=== PATIENT | male | born 1935 | race Hispanic/Latino ===

== ENCOUNTER 2019-05-17 21:35 | Inpatient (IN) | payer MEDICARE ==
[~2019-05-17] VITALS: Ht 167.6 cm; Wt 68.3 kg
[2019-05-17] MEDS ORDERED: ONDANSETRON HCL INJ 2MG/ML 2ML 2 MG/ML VIAL IV STA (22:20)
[2019-05-17] MEDS ORDERED: SODIUM CHLORIDE 0.9% 1000ML 1,000 ML IV STA ×2 (22:20→23:10)
[2019-05-17 22:28] LABS: BASOPHILS % 0.1 % (0.0-1.0); EOSINOPHILS # (AUTO) 0.2 (0.0-0.4); EOSINOPHILS % 2.1 % (0.0-6.0); HEMATOCRIT 40.2 % (38.2-49.6); HEMOGLOBIN 13.6 g/dL (14.0-18.0); LYMPHOCYTES # (AUTO) 0.4 (1.0-3.2); LYMPHOCYTES % 5.1 % (18.0-39.1); MEAN CORPUSCULAR HEMOGLOBIN 30.5 pg (28-32); MEAN CORPUSCULAR HGB CONC 33.8 g/dL (31-35); MEAN CORPUSCULAR VOLUME 90.1 fL (81-99); MONOCYTES # (AUTO) 0.1 (0.2-0.8); MONOCYTES % 1.4 % (4.4-11.3); NEUTROPHILS # (AUTO) 6.5 (2.1-6.9); NEUTROPHILS % 90.9 % (38.7-80.0); PLATELET COUNT 224 x10e3/uL (140-360); RED BLOOD COUNT 4.46 x10e6/uL (4.3-5.7); RED CELL DISTRIBUTION WIDTH 12.7 % (11.7-14.4)
[2019-05-17] MEDS ORDERED: CEFEPIME HCL 1 GM VIAL IV SCH (22:30)
[2019-05-17] MEDS ORDERED: ACETAMINOPHEN 325 MG TAB PO ONE (22:30)
[2019-05-17] MEDS ORDERED: CEFEPIME 1GM/NS 0.9% 50 ML 50 ML IV ONE (22:36)
[2019-05-17 22:41] LABS: CLARITY,URINE SL CLOUDY (CLEAR); COLOR,URINE YELLOW (YELLOW); LEUKOCYTE ESTERASE ,URINE NEGATIVE (NEGATIVE); NITRITE,URINE NEGATIVE (NEGATIVE); PROTEIN,URINE DIPSTICK TRACE (NEGATIVE)
[2019-05-17 22:42] LABS: BILIRUBIN,URINE NEGATIVE (NEGATIVE); KETONES,URINE NEGATIVE (NEGATIVE); URINE UROBILINOGEN 1 mg/dL (0.2 - 1)
[2019-05-17 23:01] LABS: RBC,URINE 21-50 /HPF (0-5)
[2019-05-17 23:02] LABS: ALBUMIN 3.8 g/dL (3.5-5.0); ALBUMIN/GLOBULIN RATIO 1.1 (0.8-2.0); ANION GAP 13.9 mmol/L (8-16); BACTERIA,URINE MODERATE /HPF; CALCIUM 9.2 mg/dL (8.4-10.2); CREATININE, SERUM 1.31 mg/dL (0.72-1.25); EPITHELIAL CELLS,URINE FEW /LPF; POTASSIUM 3.9 mmol/L (3.5-5.1)
[2019-05-17 23:08] LABS: CREATINE KINASE MB 0.8 ng/mL (0-5.0)
[2019-05-17] MEDS ORDERED: SODIUM CHLORIDE 0.9% 1000ML 1,000 ML ONE (23:16)
[2019-05-18] VITALS (10 sets, daily range): BP systolic 137–164; BP diastolic 69–74
[2019-05-18] MEDS ORDERED: SODIUM CHLORIDE 0.9% 50ML 50 ML ONE (00:09)
[2019-05-18] MEDS ORDERED: IOPAMIDOL 370 MG/ML 200 ML INFUS..BTL INJ ONE (00:09)
[2019-05-18] MEDS ORDERED: CEFEPIME 1GM/ SOD CHL 50 ML BAG IV ONE (00:30)
--- NOTE | 2019-05-18 01:09 | Diagnostic Imaging Report ---
EXAMINATION: CT of the abdomen and pelvis with contrast. TECHNIQUE: Spiral CT images of the abdomen and pelvis were performed from the lung bases to the lesser trochanters after the intravenous administration of 100 cc of Isovue 370. Coronal and sagittal reformatted images were obtained. COMPARISON: None. CLINICAL HISTORY:Nausea, bilateral upper abdominal pain DISCUSSION: ABDOMEN/PELVIS: LOWER THORAX:Left hemidiaphragmatic elevation. Bandlike atelectasis in the lower lobes left greater than right. Atherosclerotic calcifications of the left anterior descending coronary artery. Rightward mediastinal shift. HEPATOBILIARY: 1.5 cm hypoattenuating lesion in segment 4A, average internal attenuation 38 Hounsfield units, indeterminate. No additional focal hepatic lesion the gallbladder is collapsed, limiting evaluation. Questionable radiopaque filling defect in the distal common bile duct seen on series 2 image 37 and coronal image 40. Mild common bile duct dilatation (8-9 mm.) SPLEEN: No splenomegaly or focal splenic lesion. PANCREAS: No focal masses or ductal dilatation. ADRENALS: No adrenal nodules. KIDNEYS/URETERS: No hydronephrosis, calculi, or solid or cystic mass lesions. PELVIC ORGANS/BLADDER: Urinary bladder is unremarkable. The prostate is enlarged, measuring 0.9 cm transversely with mass effect on the bladder base. PERITONEUM/RETROPERITONEUM: No ascites or pneumoperitoneum. LYMPH NODES: No pelvic sidewall, retroperitoneal, or mesenteric lymphadenopathy. VESSELS: Extensive calcified and noncalcified atherosclerotic plaque throughout the abdominal aorta and major branches. Moderate left renal artery origin stenosis is suspected. Remaining visceral branch origins are patent. Advanced calcified atherosclerotic plaque of the iliac arterial systems as well, though again without significant stenosis or aneurysmal dilatation. Portal vein, splenic vein, and central superior mesenteric vein are patent. GI TRACT: The large bowel is notable for innumerable sigmoid diverticula without wall thickening or adjacent inflammatory change. The appendix is normal. Large diverticulum projects superiorly from the third portion of the duodenum. No small bowel dilatation to suggest obstruction. BONES AND SOFT TISSUE: No osseous destructive lesions. Multilevel degenerative disc changes and degenerative facet arthropathy of the lumbar spine. No focal soft tissue abnormality. IMPRESSION: Mild biliary ductal dilatation with questionable choledocholithiasis in the common bile duct. Correlation with serum bilirubin is suggested, and MRCP or gastroenterology consultation for ERCP may be of benefit for further evaluation. Otherwise no acute intra-abdominal or pelvic CT abnormalities. Large bowel diverticulosis without diverticulitis. Atherosclerotic vascular disease. Prostatomegaly. Indeterminate 1.5 cm hypoattenuating lesion in hepatic segment 4, statistically likely to be benign in the absence of known malignancy. Considerations include hemangioma and focal nodular hyperplasia. Definitive characterization with CT or MRI of the abdomen with and without contrast (liver mass protocol) is suggested. Signed by: Dr. Morgan Villalobos M.D. on 05/18/2019 1:06 AM
--- NOTE | 2019-05-18 01:11 | Diagnostic Imaging Report ---
EXAMINATION: PA and lateral views of the chest. COMPARISON: None CLINICAL HISTORY: Chest pain DISCUSSION: Marked left hemidiaphragmatic elevation with bandlike opacities in the lower lobe, likely subsegmental atelectasis. Right lung is clear. Atherosclerotic calcification of the aortic arch. Heart size and pulmonary vasculature appear normal area no acute osseous abnormality. Multilevel degenerative disc changes of the thoracic spine. IMPRESSION: Left hemidiaphragmatic elevation with bandlike atelectasis of the left lower lobe. Otherwise no acute cardiopulmonary abnormality. Signed by: Dr. Morgan Villalobos M.D. on 05/18/2019 1:08 AM
[2019-05-18] MEDS ORDERED: SODIUM CHLORIDE 0.9% 1000ML 1,000 ML IV ONE (01:45)
--- NOTE | 2019-05-18 03:16 | NUR ---
Unable to obtain home meds at this time. Patient states he will have a list in the morning.
--- OUTSIDE RECORDS SUMMARY | 2019-05-18 03:18 | XMS REPORT ---
Author [facility] Address Unknown Phone Unavailable Care Team Providers Care Family Service Assistant Name Role Phone DARBY MORA Unavailable Unavailable Problems This patient has no known problems. Allergies, Adverse Reactions, Alerts This patient has no known allergies or adverse reactions. Medications This patient has no known medications. Results Test Description Test Time Test Comments Text Results Atomic Results Result Comments CHEST 2 VIEWS 2019-05-18 01:06:00 [place] [address] Patient Name: DENISSE DOS SANTOS MR #: [id number] : 1935 Age/Sex: 84/M Req #: [id number] Adm Physician: Ordered by: DARBY MORA DO Report #: [id number] Location: ER Room/Bed: Procedure: [id number] DX/CHEST 2 VIEWS Exam Date: 05/18/19 Exam Time: 0030 REPORT STATUS: Signed EXAMINATION: PA and lateral views of the chest. COM PARISON: None CLINICAL HISTORY: Chest pain DISCUSSION: Marked left hemidiaphragmatic elevation with bandlike opacities in the lower lobe, likely subsegmental atelectasis. Right lung is clear. Atherosclerotic calcification of the aortic arch. Heart size and pulmonary vasculature appear normal area no acute osseous abnormality. Multilevel degenerative disc changes of the thoracic spine. IMPRESSION: Left hemidiaphragmatic elevation with bandlike atelectasis of the left lower lobe. Otherwise no acute cardiopulmonary abnormality. Signed by: Dr. Keenan Bradley M.D. on 05/18/2019 1:08 AM Dictated By: KEENAN BRADLEY MD 7 Transcribed By: SHANIQUA on 05/18/19107 COPY TO: DARBY MORA DO CT ABDOMEN/PELVIS W 2019-05-18 00:53:00 [place] [address] Patient Name: DENISSE DOS SANTOS MR #: [id number] : 1935 Age/Sex: 84/M Req #: [id number] Adm Physician: Ordered by: DABRY MORA DO Report #: [id number] Location: ER Room/Bed: Procedure: [id number] CT/CT ABDOMEN/PELVIS W Exam Date: 05/18/19 Exam Time: 0020 REPORT STATUS: Signed EXAMINATION: CT of the abdomen and pelvis with contra st. TECHNIQUE: Spiral CT images of the abdomen and pelvis were performed from the lung bases to the lesser trochanters after the intravenous administration of 100 cc of Isovue 370. Coronal and sagittal reformatted images were obtained. COMPARISON: None. CLINICAL HISTORY:Nausea, bilateral upper abdominal pain DISCUSSION: ABDOMEN/PELVIS: LOWER THORAX:Left hemidiaphragmatic elevation. Bandlike atelectasis in the lower lobes left greater than right. Atherosclerotic calcifications of the left anterior descending coronary artery. Rightward mediastinal shift. HEPATOBILIARY: 1.5 cm hypoattenuating lesion in segment 4A, average internal attenuation 38 Hounsfield units, indeterminate. No additional focal hepatic lesion the gallbladder is collapsed, limiting evaluation. Questionable radiopaque filling defect in the distal common bile duct seen on series 2 image 37 and coronal image 40. Mild common bile duct dilatation (8-9 mm.) SPLEEN: No splenomegaly or focal splenic lesion. PANCREAS: No focal masses or ductal dilatation. ADRENALS: No adrenal nodules. KIDNEYS/URETERS: No hydronephrosis, calculi, or solid or cystic mass lesions. PELVIC ORGANS/BLADDER: Urinary bladder is unremarkable. The prostate is enlarged, measuring 0.9 cm transversely with mass effect on the bladder base. PERITONEUM/RETROPERITONEUM: No ascites or pneumoperitoneum. LYMPH NODES: No pelvic sidewall, retroperitoneal, or mesenteric lymphadenopathy. VESSELS: Extensive calcified and noncalcified atherosclerotic plaque throughout the abdominal aorta and major branches. Moderate left renal artery origin stenosis is suspected. Remaining visceral branch origins are patent. Advanced calcified atherosclerotic plaque of the iliac arterial systems as well, though again without significant stenosis or aneurysmal dilatation. Portal vein, splenic vein, and central superior mesenteric vein are patent. GI TRACT: The large bowel is notable for innumerable sigmoid diverticula without wall thickening or adjacent inflammatory change. The appendix is normal. Large diverticulum projects superiorly from the third portion of the duodenum. No small bowel dilatation to suggest obstruction. BONES AND SOFT TISSUE: No osseous destructive lesions. Multilevel degenerative disc changes and degenerative facet arthropathy of the lumbar spine. No focal soft tissue abnormality. IMPRESSION: Mild biliary ductal dilatation with questionable choledocholithiasis in the common bile duct. Correlation with serum bilirubin is suggested, and MRCP or gastroenterology consultation for ERCP may be of benefit for further evaluation. Otherwise no acute intra-abdominal or pelvic CT abnormalities. Large bowel diverticulosis without diverticulitis. Atherosclerotic vascular disease. Prostatomegaly. Indeterminate 1.5 cm hypoattenuating lesion in hepatic segment 4, statistically likely to be benign in the absence of known malignancy. Considerations include hemangioma and focal nodular hyperplasia. Definitive characterization with CT or MRI of the abdomen with and without contrast (liver mass protocol) is suggested. Signed by: Dr. Keenan Bradley M.D. on 05/18/2019 1:06 AM Dictated By: KEENAN BRADLEY MD 5 Transcribed By: SHANIQUA on 05/18/19105 COPY TO: DARBY MORA DO
[2019-05-18] MEDS ORDERED: ACETAMINOPHEN 325 MG TAB PO PRN (04:00)
--- NOTE | 2019-05-18 04:22 | NUR ---
Patient moved to a hospital bed at this time. No distress noted. RR even and unlabored. Patient instructed to use call light if he needed any assistance. Patient verbalized understanding. Will continue to monitor patient.
--- NOTE | 2019-05-18 06:58 | NUR ---
Report to Jamie
--- NOTE | 2019-05-18 06:59 | NUR ---
received report from off going nurse. patient in hospital bed, report has been called by off going nurse. will transport after shift change.
[2019-05-18] MEDS ORDERED: AMLODIPINE BESYL5 MG PO (08:08)
[2019-05-18] MEDS ORDERED: LOSARTAN POTASS25 MG PO (08:09)
[2019-05-18] MEDS ORDERED: SIMVASTATIN20 MG PO (08:09)
[2019-05-18] MEDS ORDERED: METFORMIN HCL500 MG PO ×2 (08:10)
[2019-05-18] MEDS ORDERED: DEXTROSE 50% SYRINGE 50 ML IV PRN (09:30)
--- NOTE | 2019-05-18 09:37 | NUR ---
CONSULT CALLED TO DR HOLMAN, SPOKE TO AVERY
[2019-05-18 09:49] LABS: BASOPHILS # (AUTO) 0.1 (0.0-0.1); BASOPHILS % 0.3 % (0.0-1.0); EOSINOPHILS # (AUTO) 0.2 (0.0-0.4); EOSINOPHILS % 0.8 % (0.0-6.0); HEMATOCRIT 36.4 % (38.2-49.6); HEMOGLOBIN 12.3 g/dL (14.0-18.0); LYMPHOCYTES # (AUTO) 1.2 (1.0-3.2); MEAN CORPUSCULAR HEMOGLOBIN 30.6 pg (28-32); MEAN CORPUSCULAR HGB CONC 33.8 g/dL (31-35); MEAN CORPUSCULAR VOLUME 90.5 fL (81-99); MONOCYTES # (AUTO) 1.2 (0.2-0.8); NEUTROPHILS # (AUTO) 17.2 (2.1-6.9); NEUTROPHILS % 86.5 % (38.7-80.0); PLATELET COUNT 201 x10e3/uL (140-360); RED BLOOD COUNT 4.02 x10e6/uL (4.3-5.7)
[2019-05-18] MEDS: SODIUM CHLORIDE 0.9% 1000ML 1,000 ML IV SCH ×3 (10:45→23:58)
[2019-05-18] MEDS: INSULIN REGULAR, HUMAN 100 UNIT/1 ML 3ML VIAL SQ SCH ×3 (11:16→21:00)
--- NOTE | 2019-05-18 11:18 | NUR ---
rositaain [id number]
[2019-05-18 11:22] LABS: ALANINE AMINOTRANSFERASE 287 IU/L (0-55); ALBUMIN 3.3 g/dL (3.5-5.0); ALKALINE PHOSPHATASE 117 IU/L (40-150); AMYLASE 103 U/L (25-125); ANION GAP 11.8 mmol/L (8-16); BLOOD UREA NITROGEN 13 mg/dL (7-26); BUN/CREATININE RATIO 13 (6-25); CALCIUM 8.7 mg/dL (8.4-10.2); CARBON DIOXIDE 22 mmol/L (22-29); CHLORIDE 113 mmol/L (98-107); CREATININE, SERUM 1.01 mg/dL (0.72-1.25); EST GLOMERULAR FILTRATION RATE > 60 ML/MIN (60-); GLUCOSE 103 mg/dL (74-118); LIPASE 14 U/L (8-78); POTASSIUM 3.8 mmol/L (3.5-5.1); SODIUM 143 mmol/L (136-145)
[2019-05-18 11:51] LABS: ALBUMIN 3.3 g/dL (3.5-5.0); BILIRUBIN,DIRECT 1.7 mg/dL (0.0-0.5)
[2019-05-18] MEDS: CEFEPIME 1GM/NS 0.9% 50 ML 50 ML IV SCH ×2 (12:27→23:58)
[2019-05-18] MEDS: VANCOMYCIN 1GM/NS 250 ML 250 ML IV SCH (12:28)
--- NOTE | 2019-05-18 13:40 | Diagnostic Imaging Report ---
MRCP (magnetic resonance cholangiopancreatography) HISTORY: Choledocholithiasis Comparison: CT of the abdomen and pelvis performed earlier the same day Technique: Multiplanar and multisequence MRI images of the abdomen were obtained without contrast. Three-dimensional reconstructed images of the biliary tree are also reviewed. FINDINGS: The common bile duct is mildly dilated measuring 10 mm in maximum diameter. There is a 5 mm filling defect ductal stone in the distal common bile duct. Mild intrahepatic biliary dilatation. No pancreatic ductal dilation. The gallbladder demonstrates no intraluminal defect, wall thickening, or pericholecystic fluid. No mass is identified in the region of the ampulla or pancreatic head. Unremarkable appearance of the liver, pancreas, spleen, adrenal glands, and kidneys. The visualized bowel loops appear normal in caliber. There is a duodenal diverticulum. No free fluid or lymphadenopathy is seen within the abdomen. Impression: 1. Choledocholithiasis. A 5 mm stone is seen in the distal CBD. 2. No evidence of acute cholecystitis. 3. Mild intra and extrahepatic dilatation. The common bile duct measures up to maximum of 10 mm in diameter. Signed by: Arden Alvarado MD on 05/18/2019 1:37 PM
--- NOTE | 2019-05-18 14:29 | Consultation ---
DATE OF CONSULTATION: REASON FOR CONSULTATION: Sepsis, septic shock. HISTORY OF PRESENT ILLNESS: This patient is currently in the intensive care unit. He is an 84-year-old male, who comes into the emergency room with weakness, nausea, fever, and chills. The patient came to the hospital by his private car, was evaluated in the emergency room. In the emergency room, he had a heart rate of 104 and temperature 102. Blood cultures obtained. Flu was send out. The patient denies any past medical history and denies any past surgical history. He was admitted, currently in [facility]. LABORATORY DATA: White count on admission was 7.2, today 19.9; hemoglobin 12, hematocrit 36, and 86% segs. His lactic acid was 3.2. Sodium 137, potassium 3.9, creatinine of 1.3, and glucose 188. Blood cultures still pending. He had an abdomen CT and pelvis showed mild biliary ductal dilatation with questionable cholelithiasis. He had a chest x-ray, which showed left hemidiaphragm elevation, atelectasis in left lower lobe. MEDICATION LIST: In the emergency room, he received a dose of cefepime. PHYSICAL EXAMINATION: GENERAL: He is currently alert, oriented, does not seem to be in acute distress. VITALS SIGNS: Stable. T-max 102.5. HEENT: Normocephalic. Not icteric. NECK: Supple. CHEST: Few crackles bilaterally at the bases. HEART: S1 and S2. No S3, S4, or murmur. ABDOMEN: Soft. Bowel sounds present. No tenderness. EXTREMITIES: No edema. SKIN: There is no rash. IMPRESSION AND PLAN: Sepsis, present on admission. Agree with blood cultures. We will put the patient on vancomycin and cefepime. Recheck CBC. Check liver enzymes. Obtain ultrasound of the abdomen. Obtain MRCP. Check amylase and lipase. IV fluid. Recheck CBC. Recheck Chem panel. Agree with supportive care. We will follow. MD JESSICA Paz/JOVANA /[id number]
--- NOTE | 2019-05-18 15:37 | Diagnostic Imaging Report ---
HISTORY : Cholecystitis COMPARISON : CT of the abdomen and pelvis and MRCP dated 05/18/2019 COMMENT : Complete ultrasound examination of the abdomen was performed. The liver is normal in size and homogeneous in echo-texture without evidence of a focal mass. The gallbladder contains echogenic sludge. There is no gallbladder wall thickening or pericholecystic fluid. There is mild intrahepatic dilatation. The common bile duct is normal diameter measuring 5 mm.. The visualized portions of the pancreas are within normal limits. The spleen is normal in size and echo-texture measuring 10.8 cm. The right kidney measures 9.2 cm and the left kidney 10.4 cm in maximum size. There is no evidence of cysts, masses, stones or hydronephrosis. The portal vein measures to a maximum of 1.1 cm in diameter. There is no ascites or pleural effusion. The visualized inferior vena cava, hepatic veins and abdominal aorta are within normal limits. IMPRESSION : Gallbladder sludge. No ultrasonographic evidence of acute cholecystitis. Mild intrahepatic or dilatation. Signed by: Arden Alvarado MD on 05/18/2019 3:34 PM
--- NOTE | 2019-05-18 18:18 | NUR ---
call placed to MAYELIN MEDRANO director of promotions, awaiting return call
--- NOTE | 2019-05-18 18:46 | NUR ---
spoke to Dr. Gleason and informed patient needs a ERCP prior to gallbladder removal per Dr. Leisa Yates, no new orders and states "he will inform Dr. Ziegler and they will take care of it".
--- NOTE | 2019-05-18 18:52 | NUR ---
Date of Service 05/18/2019 Date of service 05/18/2019 History present illness: 84-year-old gentleman presented to emergency department complaining of fever, chills. The patient was not doing well and presented with a clinical picture of sepsis. CAT scan of the abdomen demonstrated biliary colic Patient with questionable choledocholithiasis in the common bile duct possible vascular disease. Patient was placed on IV fluids and broad spectrum antibiotics were started. Basically patient has been complaining of right upper quadrant pain of moderate intensity along with episodes of nausea and vomiting. Past medical history: Significant for diabetes mellitus, hypertension and hyperlipidemia. Medications taken at admission: Per medication list. Social history: History of smoking 1 pack is cigarettes per day for 15 years. Quit smoking long time ago. No alcohol abuse. No drug use. Family history: Noncontributory. Allergies: As per record. Wendy Mendoza is a 79 y.o. female patient who was doing fine at the time of my evaluation. The patient they stated that she would like to go home however she has been feeling weak and noted to have UTI. It is advisable to follow-up sensitivities today. Denies nausea, no vomiting, no diarrhea. No fever no chills. Denies having abdominal pain. No back pain. No chest pain or shortness of breath Objective Review of systems Constitutional: Feeling weak. Cardiovascular: Denies PND, chest pain, palpitations, Respiratory: Denies cough or shortness of breath. Gastrointestinal: . Playful no pain. Genitourinary: Denies dysuria, hematuria or frequency. Neurologic: Denies focal weakness. No confusion. bowel or bladder incontinence. Skin: Denies rashes. Skeletal: No back pain, no arthralgias or joint pain. Allergies: Negative Hematological:: No petechia, no bruising. Psych: No anxiety or depression. Assessment: -History of fever and chills. Possible sepsis. -Choledocholithiasis as determined by CT scan of the abdomen. -Diabetes mellitus type 2 -Hypertension -Hepatic segment lesion, possible hemangioma. Size 1.5 cm diameter. -Hyperlipidemia Plan of care: Admitted for further evaluation. Placed on IV fluids. Pain control. MRCP ordered. Consult general surgery Consult pulmonary critical care -Date of service 05/18/2019 History present illness: 84-year-old gentleman presented to emergency department complaining of fever, chills. The patient was not doing well and presented with a clinical picture of sepsis. CAT scan of the abdomen demonstrated biliary colic Patient with questionable choledocholithiasis in the common bile duct possible vascular disease. Patient was placed on IV fluids and broad spectrum antibiotics were started. Basically patient has been complaining of right upper quadrant pain of moderate intensity along with episodes of nausea and vomiting. Past medical history: Significant for diabetes mellitus, hypertension and hyperlipidemia. Medications taken at admission: Per medication list. Social history: History of smoking 1 pack is cigarettes per day for 15 years. Quit smoking long time ago. No alcohol abuse. No drug use. Family history: Noncontributory. Allergies: As per record. Wendy Mendoza is a 79 y.o. female patient who was doing fine at the time of my evaluation. The patient they stated that she would like to go home however she has been feeling weak and noted to have UTI. It is advisable to follow-up sensitivities today. Denies nausea, no vomiting, no diarrhea. No fever no chills. Denies having abdominal pain. No back pain. No chest pain or shortness of breath Objective Review of systems Constitutional: Feeling weak. Cardiovascular: Denies PND, chest pain, palpitations, Respiratory: Denies cough or shortness of breath. Gastrointestinal: . Playful no pain. Genitourinary: Denies dysuria, hematuria or frequency. Neurologic: Denies focal weakness. No confusion. bowel or bladder incontinence. Skin: Denies rashes. Skeletal: No back pain, no arthralgias or joint pain. Allergies: Negative Hematological:: No petechia, no bruising. Psych: No anxiety or depression. Assessment: -History of fever and chills. Possible sepsis. -Choledocholithiasis as determined by CT scan of the abdomen. -Diabetes mellitus type 2 -Hypertension -Hepatic segment lesion, possible hemangioma. Size 1.5 cm diameter. -Hyperlipidemia Plan of care: Admitted for further evaluation. Placed on IV fluids. Pain control. MRCP ordered. Consult general surgery Consult pulmonary critical care Consult ID and GI. Glycemic control Consult ID and GI.
--- NOTE | 2019-05-18 20:10 | Consultation ---
DATE OF CONSULTATION: 05/18/2019 Pulmonary Medicine Consult PRIMARY CARE DOCTOR: Justino Bradley MD REASON FOR REFERRAL: Sepsis. HISTORY OF PRESENT ILLNESS: Mr. Styles is a pleasant 84-year-old gentleman with sepsis. The patient with now two days of symptoms, acute onset just prior to coming to the hospital. In emergency room, 102.5 temperature recorded. The patient had some right upper quadrant pain of moderate intensity and it is worse than what he had a few months ago when similar pain happened in the past. He never had any abdominal surgeries in the past. The patient underwent assessment including radiography. Chest x-ray demonstrates bandlike atelectasis of left lower lobe and left hemidiaphragmatic elevation. Otherwise, no acute changes. Abdominal CT demonstrates mild biliary ductal dilatation with questionable choledocholithiasis in the common bile duct, possible vascular disease. The patient furthermore had 1.5 cm hepatic segment for hypoattenuating indeterminate lesion more likely benign although malignancy not ruled out. The patient was admitted to the hospital, was noted to have some tachycardia, chills. I am consulted. PAST MEDICAL HISTORY: Hypertension, diabetes, hyperlipidemia. MEDICATIONS: Medication list reviewed per record. ALLERGIES: REVIEWED PER ELECTRONIC RECORD. SOCIAL HISTORY: Rare smoking for 15 years of his life, one pack per day, but he quit long time ago. He was a salesman by occupation. No alcohol. No drugs. FAMILY HISTORY: Noncontributory. REVIEW OF SYSTEMS: GENERAL: No weight changes. OPHTHALMOLOGIC: No floaters. ENT: No mouth ulcers. ENDOCRINE: No known thyroid disease. CARDIAC: No heart attack. PULMONARY: No hemoptysis. GI: No diarrhea. : No blood in urine. NEUROLOGIC: No seizures. MUSCULOSKELETAL: Mild arthritis. PHYSICAL EXAMINATION: VITAL SIGNS: Noted and reviewed per the chart record. GENERAL: In no acute distress, alert and calm. HEENT: Normocephalic and atraumatic. NECK: Supple. Throat midline. LUNGS: Bilateral air entry, clear. CARDIOVASCULAR: S1, S2. No murmurs, rubs, or gallops. ABDOMEN: Soft and nontender. Additional GI exam with only mild discomfort as the patient states he is better compared to the previous stay. EXTREMITIES: No clubbing. No cyanosis. There is no edema. INTEGUMENT: No rash. No purpura. LABORATORY DATA: Reported CBC and CMP are mostly unremarkable. The patient with lactic acid of 2.9 at most recent, was elevated upon presentation. IMPRESSION: 1. Febrile syndrome, likely sepsis of right upper quadrant origin. 2. Abnormal abdominal radiography, biliary ductal dilatation and possibly choledocholithiasis. 3. 1.5 cm indeterminate hepatic segment 4 lesion, possible hemangioma, possible benign versus malignant lesion. 4. Abnormal chest radiography, hemidiaphragm elevation, atelectasis. 5. This is less likely pneumonia. 6. Diabetes. 7. Hyperlipidemia. 8. Hypertension. 9. Allergies. 10. History of smoking, 15 pack years total. Admit. Continue IV antibiotics. IV fluid ongoing, we will continue. Get MRCP today. Follow up closely. The patient may need surgery. If there is no obstruction, stones, or else, consideration could be for ERCP. Thank you very much, Dr. Hua and Dr. Bradley. Please call for questions. MD LAKEISHA Sun/JOVANA /[id number]
[2019-05-18] MEDS: METRONIDAZOLE 500MG/NS 100ML 100 ML IV SCH (21:04)
--- NOTE | 2019-05-18 23:51 | Consultation ---
DATE OF CONSULTATION: CONTINUATION: PAST MEDICAL HISTORY: Denies. PAST SURGICAL HISTORY: Denies. He is telling me that he had abdominal pain around February, lasted for 2 days, now he is coming with abdominal pain. He was on IV antibiotic. He is feeling better. REVIEW OF SYSTEMS: At present time is otherwise unremarkable. LABORATORY DATA: As mentioned above. MEDICATIONS: At home none. He was started on vancomycin and cefepime now. PHYSICAL EXAMINATION: GENERAL: He is currently alert and oriented, does not seem to be in acute distress. VITAL SIGNS: Stable, currently afebrile. HEENT: Not icteric. NECK: Supple. CHEST: Clear. ABDOMEN: Soft. I ordered an MRCP this morning and came back with choledocholithiasis, 5 mm stone is seen in distal CBD. No evidence of acute cholecystitis. Mild intrahepatic dilatation. The common bile duct measured about 10 mm. IMPRESSION AND PLAN: Abdominal pain, probably due to the stone. Recheck CBC. Continue antibiotic as ordered. Recommend GI evaluation. MD JESSICA Paz/JOVANA /[id number]
[2019-05-19] VITALS (9 sets, daily range): BP systolic 111–199; BP diastolic 56–80
[2019-05-19] MEDS: VANCOMYCIN 1GM/NS 250 ML 250 ML IV SCH ×2 (00:39→17:13)
--- NOTE | 2019-05-19 02:52 | Consultation ---
DATE OF CONSULTATION: 05/18/2019 HISTORY OF PRESENT ILLNESS: This is 84 years old, who presented to the hospital initially because of abdominal pain along with some nausea, fever, and chills. The patient's workup revealed that he has leukocytosis with WBC of 19,000 along with elevated liver function tests with bilirubin as high as 2.4, AST of 536, and ALT of 342. He also was septic. He had abdominal ultrasound on admission, which found evidence of gallbladder sludge or gallstones with bile duct of 5 mm. He subsequently had an MRCP, that was done earlier this morning and shows evidence of choledocholithiasis. GI consult was obtained for further management. PAST MEDICAL HISTORY: Significant for history of hypertension, diabetes, hyperlipidemia. ALLERGIES: NONE. SOCIAL HISTORY: Denies any alcohol use. FAMILY HISTORY: Noncontributory. REVIEW OF SYSTEMS: Denies any chest pain or shortness of breath. Denies any dysphagia, odynophagia. Denies any dysuria, hematuria, or any kind of syncopal episode. PHYSICAL EXAMINATION: GENERAL: Awake, alert, appears to be stable, in acute distress at this point. VITAL SIGNS: Afebrile currently. HEAD, EYES, EARS, NOSE, AND THROAT: Normocephalic. Sclera is mildly icteric. NECK: Supple. HEART: Sounds regular. ABDOMEN: Soft. There is mild epigastric tenderness. There is no rebound or mass. EXTREMITIES: No clubbing. LABORATORY VALUES: As of this morning, total bilirubin is 2.4 with direct 1.7. AST down to 235, ALT 287. Again, ultrasound showed gallbladder sludge, but the MRCP shows evidence of stones in the bile duct. WBC of 19.9 this morning. IMPRESSION: Gallstone with possible common bile duct stones and possibly some cholangitis, appears to be doing better at this point. RECOMMENDATION: Continue antibiotic for now. We will proceed with ERCP for evaluation tomorrow. Risk and benefit were discussed with the patient and the family and they both understand the risks including bleeding, infection, perforation, as well as pancreatitis and they are willing to proceed. MD MAREK Dhaliwal/JOVANA /[id number] cc: MD Justino Freeman MD
[2019-05-19 05:15] LABS: BASOPHILS # (AUTO) 0.1 (0.0-0.1); BASOPHILS % 0.6 % (0.0-1.0); EOSINOPHILS # (AUTO) 0.4 (0.0-0.4); EOSINOPHILS % 3.6 % (0.0-6.0); HEMATOCRIT 32.9 % (38.2-49.6); LYMPHOCYTES % 9.1 % (18.0-39.1); MEAN CORPUSCULAR HEMOGLOBIN 30.6 pg (28-32); MEAN CORPUSCULAR HGB CONC 33.4 g/dL (31-35); MEAN CORPUSCULAR VOLUME 91.4 fL (81-99); MONOCYTES # (AUTO) 0.7 (0.2-0.8); MONOCYTES % 6.5 % (4.4-11.3); NEUTROPHILS # (AUTO) 8.7 (2.1-6.9); NEUTROPHILS % 79.7 % (38.7-80.0); PLATELET COUNT 172 x10e3/uL (140-360); RED CELL DISTRIBUTION WIDTH 13.1 % (11.7-14.4)
[2019-05-19 05:31] LABS: INR 1.15; PROTHROMBIN TIME 15.4 seconds (11.9-14.5)
[2019-05-19 05:45] LABS: ALANINE AMINOTRANSFERASE 154 IU/L (0-55); ALBUMIN 2.6 g/dL (3.5-5.0); ALKALINE PHOSPHATASE 90 IU/L (40-150); ANION GAP 8.5 mmol/L (8-16); BLOOD UREA NITROGEN 10 mg/dL (7-26); BUN/CREATININE RATIO 12 (6-25); CALCIUM 7.5 mg/dL (8.4-10.2); CARBON DIOXIDE 20 mmol/L (22-29); CHLORIDE 115 mmol/L (98-107); CREATININE, SERUM 0.82 mg/dL (0.72-1.25); EST GLOMERULAR FILTRATION RATE > 60 ML/MIN (60-); GLUCOSE 69 mg/dL (74-118); POTASSIUM 3.5 mmol/L (3.5-5.1); SODIUM 140 mmol/L (136-145)
[2019-05-19] MEDS: METRONIDAZOLE 500MG/NS 100ML 100 ML IV SCH ×3 (06:01→21:51)
[2019-05-19] MEDS ORDERED: IOPAMIDOL 300MG/ML 50ML INFUS..BTL IV ONE (06:38)
--- NOTE | 2019-05-19 07:02 | NUR ---
pt off unit for procedure
[2019-05-19] MEDS: INSULIN REGULAR, HUMAN 100 UNIT/1 ML 3ML VIAL SQ SCH ×4 (07:30→20:16)
[2019-05-19] MEDS: SODIUM CHLORIDE 0.9% 1000ML 1,000 ML IV SCH ×2 (08:57→19:33)
--- NOTE | 2019-05-19 08:57 | Diagnostic Imaging Report ---
PROCEDURE: Fluoroscopically assisted ERCP COMPARISON: MRCP of 05/18/2019. INDICATION: Choledocholithiasis Radiation Details: Fluoroscopy time: 1.2 minutes Cumulative dose: 41 mGy DISCUSSION: Fluoroscopic images were utilized during ERCP. Images demonstrate successful endoscopic selection of the biliary system with contrast injection demonstrating multiple filling defects in the common bile duct. Subsequent balloon sweeps were made with final images demonstrating resolution of filling defects within the duct and opacification of the common bile duct, intrahepatic bile ducts, cystic duct, and gallbladder. CONCLUSION: Fluoroscopically guided ERCP as above. Signed by: Anila Weller MD on 05/19/2019 8:54 AM
--- NOTE | 2019-05-19 12:06 | NUR ---
Received patient transfer from [facility]. Respiration even and unlabored without SOB. Call light in reach.
[2019-05-19] MEDS ORDERED: SODIUM CHLORIDE 0.9% 250ML 250 ML ONE (12:50)
[2019-05-19] MEDS: CEFEPIME 1GM/NS 0.9% 50 ML 50 ML IV SCH (12:53)
[2019-05-19] MEDS: ONDANSETRON HCL INJ 2MG/ML 2ML 2 MG/ML VIAL IV PRN (13:56)
--- NOTE | 2019-05-19 14:00 | NUR ---
Visit made by the Spiritual Care Department Pastoral Visitor, Larisa Paez. Pt sleeping soundly and no family present. Pastoral Visitor left a card describing availability of twist maker and instructions on how to contact a twist maker. [facility] O: [phone]
[2019-05-19] MEDS ORDERED: AMLODIPINE BESYLATE 10 MG TAB PO ONE (14:30)
[2019-05-19] MEDS ORDERED: PROPOFOL IV EMULSION 10 MG/ML 50 ML VIAL ONE (17:26)
--- NOTE | 2019-05-19 17:42 | Progress Note ---
DATE: 05/17/2019 SUBJECTIVE: The patient was doing fine at the time of the evaluation. The patient denies having fever or chills. No abdominal pain. No nausea or vomiting. No chest pain or shortness of breath. The patient was admitted with a clinical picture suggestive of sepsis. CT scan of the abdomen demonstrated biliary colic and there was questionable choledocholithiasis in the common bile duct, possible vascular disease. The patient has been on IV fluids. He underwent further investigations with ERCP and with MRCP and the findings were that of choledocholithiasis and a 5 mm stone was seen in the distal common bile duct and there was no evidence of acute cholecystitis After MRCP there was mild intra and extrahepatic dilatation. The common bile duct measures up to a maximum of 10 mm in diameter. Subsequently, the patient underwent further investigation with ERCP. There was evidence of multiple filling defects in the common bile duct. Balloon sweeps were performed demonstrating resolution of filling defects within the duct and opacification of the common bile duct, intrahepatic bile ducts, cystic duct and gallbladder. The patient has been doing fine. OBJECTIVE: GENERAL: The patient has been alert, oriented to person, time, and place. The patient in no distress. VITAL SIGNS: Blood pressure has been elevated systolic going up to 199/65, respirations 18, pulse 63, temperature 97.6. HEENT: Head, normocephalic and atraumatic. NECK: Supple. No JVD. Thyroid was not enlarged. LUNGS: Clear to auscultation. HEART: Regular rate and rhythm. ABDOMEN: Soft, nontender. EXTREMITIES: No edema. NEUROLOGIC: Nonfocal. ASSESSMENT: 1. History of fever and chills and sepsis. 2. Choledocholithiasis determined by CT scan of the abdomen. 3. Diabetes mellitus type 2. 4. Hypertension. 5. Hepatic segment lesion, possible hemangioma. 6. Hyperlipidemia. 7. Status post ERCP and MRCP results listed above. PLAN: Basically, the plan is to have a further evaluation and being followed by Surgery and by ID as well. We will follow labs. Follow up with surgical consultation. MD BERYL Durand/JOVANA /[id number] GILL
--- NOTE | 2019-05-19 19:18 | NUR ---
Report given to overnight stocker. Respiration even and unlabored without SOB. Call light in reach.
--- NOTE | 2019-05-19 19:38 | History and Physical ---
CHIEF COMPLAINT: Weakness, nausea, and fever. HISTORY OF PRESENT ILLNESS: An 84-year-old gentleman with a known history of hypertension, diabetes mellitus, and dyslipidemia, who presented to the emergency room with primary complaints of feeling very weak, having nausea, fever and chills. The patient has been complaining of episodes of nausea and vomiting. He denies having any chest pain or shortness of breath. Complaining of abdominal pain. On route to the emergency room, custom protection officer temperature was 102, heart rate 104. White blood cell count 7.2, hemoglobin 12, hematocrit 36. Lactic acid 3.2. Sodium 137, potassium 3.9, creatinine 1.3, glucose 188. There was a concern about an episode of sepsis, and according to the information gathered, the patient did have findings suggestive of sepsis. The patient did have CAT scan of the abdomen performed, which did reveal mild biliary duct dilatation with questionable cholelithiasis. Chest x-ray demonstrated left hemidiaphragm elevation, atelectasis in the left lower lobe. In the emergency room department he was given Cefepime and was transferred to [facility]. EKG revealed no acute process. Normal P-waves, normal QRS complex, T-wave inversion in lead II, III, aVF, V3, V4, V5, and V6, and ischemia was considered. REVIEW OF SYSTEMS: CONSTITUTIONAL: Complaining of fevers and complaining of chills and general malaise. HEENT: No headaches. CARDIOVASCULAR: Reports palpitations. No chest pain. No PND. spells. RESPIRATORY: No cough, no hemoptysis, no shortness of breath. GI: Reports nausea and vomiting. There is no diarrhea. No hematemesis and no melena. PAST MEDICAL HISTORY: As stated above. FAMILY HISTORY: Noncontributory. SOCIAL HISTORY: No tobacco or alcohol abuse that I am aware. ALLERGIES: PER CHART. MEDICATIONS: Home medications include amlodipine, potassium chloride, metformin, simvastatin. Inpatient medications Tylenol, Cefepime, dextrose IV, insulin sliding scale per protocol, also vancomycin, and Zofran for nausea and vomiting. PHYSICAL EXAMINATION: GENERAL: The patient is alert and oriented to person, time, and place. He is in no apparent distress at the time of my evaluation. He is hemodynamically stable. VITAL SIGNS: Blood pressure 147/73, respirations 18, pulse 69, and temperature 98.4. HEENT: Head normocephalic, atraumatic. Extraocular movements are intact. NECK: Supple. No JVD. Thyroid was not enlarged_. LUNGS: A few crackles bilaterally at the bases. HEART: Regular rate and rhythm. No murmurs, rubs, or gallops. ABDOMEN: Soft and nontender. No organomegaly. EXTREMITIES: No edema. NEURO: Nonfocal. LABORATORY DATA: As noted. _ ASSESSMENT: 1. Sepsis. 2. Choledocholithiasis. 3. History of diabetes mellitus type 2. 4. History of hypertension. 5. History of hyperlipidemia. PLAN OF CARE: Blood cultures were drawn. Placed the patient on broad-spectrum antibiotics. IV fluids. N.p.o. Keep the patient on telemetry. Antiemetics. DVT prophylaxis. GI consultation requested as well as Critical Care consultation. ID consultation requested. Blood cultures are pending. Followup labs, CBC and BMP. MD BERYL Durand/JOVANA /[id number] MTDJose David
--- NOTE | 2019-05-19 22:53 | NUR ---
Paged Dr. Bah for positive blood culture result. waiting for response.
--- NOTE | 2019-05-19 23:27 | NUR ---
PULMONARY SEEN AND EXAMINED WITH GONZALO LAMAS NP. 05/19/19 s/p ERCP stone extraction. Sepsis seems better. patient tells me he is planned for OR tomorrow?
[2019-05-20] VITALS (8 sets, daily range): BP systolic 151–181; BP diastolic 65–81
[2019-05-20] MEDS: CEFEPIME 1GM/NS 0.9% 50 ML 50 ML IV SCH ×3 (00:03→23:51)
[2019-05-20] MEDS: VANCOMYCIN 1GM/NS 250 ML 250 ML IV SCH (04:28)
[2019-05-20] MEDS: METRONIDAZOLE 500MG/NS 100ML 100 ML IV SCH ×3 (06:32→21:25)
[2019-05-20] MEDS: INSULIN REGULAR, HUMAN 100 UNIT/1 ML 3ML VIAL SQ SCH ×4 (07:30→21:25)
[2019-05-20] MEDS ORDERED: BUPIVACAINE 0.25% 30ML SDV INJ ONE (08:30)
[2019-05-20] MEDS: SODIUM CHLORIDE 0.9% 1000ML 1,000 ML IV SCH ×2 (08:53→21:15)
[2019-05-20] MEDS ORDERED: HYDROMORPHONE 1MG/1ML INJ IV PRN (10:30)
[2019-05-20] MEDS ORDERED: HYDROCODONE/APAP 7.5MG-325MG 1 EA TAB PO PRN (10:30)
[2019-05-20] MEDS ORDERED: MORPHINE SULFATE 2 MG/ML SYR 1ML ONE (10:49)
[2019-05-20] MEDS ORDERED: ROCURONIUM BROMIDE 10 MG/ML 5ML VIAL ONE (13:20)
[2019-05-20] MEDS ORDERED: NEOSTIGMINE 1 MG/ML 10ML VIAL ONE (13:20)
[2019-05-20] MEDS ORDERED: GLYCOPYRROLATE INJ 0.2 MG/ML VIAL ONE (13:20)
[2019-05-20] MEDS ORDERED: LIDOCAINE HCL 2% LOCAL INJ 5 ML SDV VIAL INJ ONE (13:20)
[2019-05-20] MEDS ORDERED: PROPOFOL IV EMULSION 10 MG/ML 20 ML VIAL ONE (13:20)
[2019-05-20] MEDS ORDERED: ONDANSETRON HCL INJ 2MG/ML 2ML 2 MG/ML VIAL ONE (13:20)
[2019-05-20] MEDS ORDERED: SEVOFLURANE INHAL SOLN 250 ML PEN BTL ONE (13:20)
[2019-05-20] MEDS: ONDANSETRON HCL INJ 2MG/ML 2ML 2 MG/ML VIAL IV PRN (15:15)
--- NOTE | 2019-05-20 16:08 | Operative Report ---
DATE OF PROCEDURE: 05/20/2019 SURGEON: Fausto Yates MD PREOPERATIVE DIAGNOSES: Cholecystitis and cholelithiasis. POSTOPERATIVE DIAGNOSES: Cholecystitis and cholelithiasis. OPERATION PERFORMED: Laparoscopic cholecystectomy. ASSISTANTS: 1. Dr. Pablo Yates. 2. CHINMAY Elizondo. ANESTHESIA: General. COMPLICATIONS: None. ESTIMATED BLOOD LOSS: Minimal. DESCRIPTION OF PROCEDURE: With the patient lying in bed in the supine position under good general endotracheal anesthesia, the abdomen was prepped with Betadine solution and draped in the usual manner. A Veress needle was introduced into the umbilicus and pneumoperitoneum was established without any difficulty. An 11 mm trocar was placed into the umbilicus and a 10 mm video laparoscope was placed into the intra-abdominal cavity. Under direct vision, three 5 mm trocars were placed in the right subcostal region. Video laparoscopy at this point revealed the presence of the gallbladder being totally covered up with thick adhesions. The patient obviously has been having trouble for a long time, as some of these adhesions were very fibrous and chronic in nature. The rest of the abdominal exploration otherwise appeared to be within normal limits. All the adhesions of the gallbladder were then slowly and carefully taken down. The peritoneum overlying the neck of the gallbladder was then opened and the cystic duct was identified. The cystic duct was then followed to its junction with the common duct. The cystic duct was rather large in size consistent with the patient having passed stone into the common duct that had been removed today before. The cystic duct was then circumferentially dissected away from the common duct, doubly clipped and divided. The cystic artery was similarly doubly clipped and divided. The gallbladder was then slowly and carefully taken off the liver bed using the cautery scissors and perfect hemostasis was ascertained. The gallbladder was then grasped through the umbilical port and removed without any difficulty. Video laparoscopy was then again carried out. The liver bed was found to be perfectly dry. All the excess fluid was aspirated. The pneumoperitoneum was evacuated and all the trocars were removed under direct vision. The midline fascia at the umbilicus was then closed with a [id number] of 0 Vicryl. All layers were infiltrated on the way out with solution of 0.25% Marcaine. Subcutaneous tissue was approximated with 3-0 Vicryl and the skin was closed with subcuticular 5-0 Vicryl. Benzoin, Steri-Strips, and Band-Aids were applied. The sponge, lap, and needle count was correct. The patient tolerated the procedure well and returned to the recovery room in stable condition. MD JIMI Freeman/JOVANA /[id number]
[2019-05-20] MEDS ORDERED: FENTANYL CITRATE/PF 100MCG/2 ML INJ ONE (18:13)
--- NOTE | 2019-05-20 18:53 | NUR ---
Pulmonary Medicine DATE 05/20/2019 SUBJECTIVE: 2 L/min oxygen NS @75ml/hr had OR today on clear liquid diet REVIEW OF SYSTEMS: no rash, no chest pain, no dyspnea, no cough, no hemoptysis OBJECTIVE: VITAL SIGNS: vital signs noted and reviewed per the chart record. GENERAL: no acute distress, alert and calm in bed. HEENT: Normocephalic and atraumatic. NECK: Supple. Throat midline. LUNGS: Bilateral air entry good, chest expansion symmetrical. ABDOMEN: Soft, nontender. CARDIAC: S1 and S2. No murmurs, rubs, or gallops. EXTREMITIES: No clubbing, no cyanosis, no edema. INTEGUMENT: No rash. No purpura. LABORATORY DATA: reviewed per electronic medical record IMPRESSION AND PLAN: 1. Choledocholithiasis with acute cholecystitis, s/p ERCP s/p laparoscopic cholecystectomy 2. Abnormal Chest radiography, hemidiaphragm elevation, atelectasis, Less likely pneumonia 3. 1.5cm indeterminate hepatic segment 4 lesion, possible hemangioma, possible benign versus malignant lesion. 4. Diabetes 5. Hyperlipidemia 6. Hypertension 7. Allergies 8. History of Smoking, 15 pack years total Continue antibiotics. Continue IV fluid administration. Follow up closely Reassess long-term the hemidiaphragm elevation. Recommend PFTs, repeat CXR +/- SNIFF test We will follow along closely. Thank you Dr. Hua for this consult.
[2019-05-20] MEDS: HYDRALAZINE HCL 20 MG/ML VIAL IV PRN (21:25)
--- NOTE | 2019-05-20 21:25 | NUR ---
PATIENT IN STABLE CONDITION, NO SIGNS OF DISTRESS NOTED. FAMILY MEMBERS ARE AT BEDSIDE AND PATIENT VOICES ABDOMINAL PAIN AT A LEVEL OF 4 AND DECLINED MEDICATION. IV FLUIDS ARE RUNNING AT ORDERED RATE AND NASAL CANNULA IS INTACT AND RUNNING AT 2 LITERS. BED IS IN LOWEST POSITION, BOTH SIDE RAILS ARE UP, CALL LIGHT IS WITHIN EASY REACH, WILL CONTINUE TO MONITOR.
--- NOTE | 2019-05-20 23:10 | NUR ---
Date of Service 05/20/19 SUBJECTIVE Events noted. The patient underwent intervention for choledocholithiasis with acute cholecystitis. Was seen by general surgery and had laparoscopic cholecystectomy. The patient was doing fine at the time of my evaluation. Postop doing okay. Hemodynamically stable. ROS General: Denies fever chills Cardia vascular: No CP, no edema Respiratory: No SOB, no cough, no hemoptysis GI: Stable postop. No distended abdomen. Genitourinary: No urinary symptoms. Neuro: No focal weakness. Alert oriented x3 Psychiatrist: No anxiety Physical exam: Patient was in no distress. Vital signs: Blood pressure 180/81, respiration 20, pulse 93, temperature 98.4 HEENT: No gross abnormalities noted. Neck: Supple no JVD Lungs: Clear to auscultation Heart: Regular rate and rhythm no murmurs no gallops Abdomen: Soft nontender, no organomegaly, bowel sounds present. Extremities: No cyanosis, clubbing or edema Neuro: No Patient alert oriented 3 Musculoskeletal: No significant deformity or swelling of joints. Psych: Normal mood Lab data: 05/19/2019 Hemoglobin 11.0, WBC 10.6, platelet count 172,000 Assessment -Choledocholithiasis with acute cholecystitis. -Status post lap cholecystectomy -Status post ERCP -Fever and chills. -Sepsis -Hypertension not controlled -Diabetes mellitus type 2 -Hyperlipidemia -History of smoking Plan of care: -IV fluids -Monitor labs -DVT prophylaxis -Monitor blood pressure and pulse -Adjustment of blood pressure medications accordingly
[2019-05-20] MEDS ORDERED: LABETALOL HCL 5 MG/ML 20ML VIAL IV PRN (23:15)
[2019-05-21] VITALS: BP 168/78
[2019-05-21 04:00] VITALS: BP 164/74
[2019-05-21] MEDS: METRONIDAZOLE 500MG/NS 100ML 100 ML IV SCH ×2 (05:29→14:06)
[2019-05-21] MEDS: HYDRALAZINE HCL 20 MG/ML VIAL IV PRN (05:30)
[2019-05-21 06:24] LABS: BASOPHILS % 0.1 % (0.0-1.0); EOSINOPHILS % 0.1 % (0.0-6.0); HEMOGLOBIN 12.6 g/dL (14.0-18.0); LYMPHOCYTES # (AUTO) 0.9 (1.0-3.2); LYMPHOCYTES % 10.9 % (18.0-39.1); MEAN CORPUSCULAR HEMOGLOBIN 30.4 pg (28-32); MEAN CORPUSCULAR HGB CONC 34.1 g/dL (31-35); MEAN CORPUSCULAR VOLUME 89.2 fL (81-99); MONOCYTES # (AUTO) 0.8 (0.2-0.8); MONOCYTES % 9.4 % (4.4-11.3); NEUTROPHILS # (AUTO) 6.5 (2.1-6.9); NEUTROPHILS % 79.1 % (38.7-80.0); PLATELET COUNT 214 x10e3/uL (140-360); RED BLOOD COUNT 4.15 x10e6/uL (4.3-5.7); RED CELL DISTRIBUTION WIDTH 13.2 % (11.7-14.4)
[2019-05-21 06:50] LABS: ALANINE AMINOTRANSFERASE 89 IU/L (0-55); ALBUMIN/GLOBULIN RATIO 0.9 (0.8-2.0); ALKALINE PHOSPHATASE 105 IU/L (40-150); ANION GAP 9.1 mmol/L (8-16); BLOOD UREA NITROGEN 9 mg/dL (7-26); BUN/CREATININE RATIO 9 (6-25); CALCIUM 8.4 mg/dL (8.4-10.2); CARBON DIOXIDE 24 mmol/L (22-29); CHLORIDE 106 mmol/L (98-107); CREATININE, SERUM 1.04 mg/dL (0.72-1.25); EST GLOMERULAR FILTRATION RATE > 60 ML/MIN (60-); GLUCOSE 120 mg/dL (74-118); POTASSIUM 3.1 mmol/L (3.5-5.1); SODIUM 136 mmol/L (136-145)
[2019-05-21] MEDS: INSULIN REGULAR, HUMAN 100 UNIT/1 ML 3ML VIAL SQ SCH ×3 (07:30→16:30)
[2019-05-21 07:35] VITALS: BP 143/69
[2019-05-21 08:52] VITALS: BP 143/69
[2019-05-21] MEDS: ONDANSETRON HCL INJ 2MG/ML 2ML 2 MG/ML VIAL IV PRN (10:57)
[2019-05-21 11:25] VITALS: BP 112/55
--- NOTE | 2019-05-21 11:45 | NUR ---
Pulmonary/Critical Care Medicine DATE 05/21/2019 SUBJECTIVE: tolerating CLD so far no flatus no BM nurse tells me the patient has no drains REVIEW OF SYSTEMS: no rash, no hemoptysis OBJECTIVE: VITAL SIGNS: vital signs noted and reviewed per the chart record. GENERAL: no acute distress, alert and calm in bed. HEENT: Normocephalic and atraumatic. NECK: Supple. Throat midline. LUNGS: Bilateral air entry good, chest expansion symmetrical. ABDOMEN: Soft, nontender. CARDIAC: S1 and S2. No murmurs, rubs, or gallops. EXTREMITIES: No clubbing, no cyanosis, no edema. INTEGUMENT: No rash. No purpura. LABORATORY DATA: reviewed per electronic medical record IMPRESSION AND PLAN: 1. Choledocholithiasis with acute cholecystitis, s/p ERCP s/p laparoscopic cholecystectomy. ---Ecoli bacteremia 2. Abnormal Chest radiography, hemidiaphragm elevation, atelectasis, Less likely pneumonia 3. 1.5cm indeterminate hepatic segment 4 lesion, possible hemangioma, possible benign versus malignant lesion. 4. Diabetes 5. Hyperlipidemia 6. Hypertension 7. Allergies 8. History of Smoking, 15 pack years total Continue antibiotics. Esclate PO intake per surgeon Fix k PT consult mechanical DVT ppx Follow up closely Reassess long-term the hemidiaphragm elevation. Recommend PFTs, repeat CXR +/- SNIFF test We will follow along closely. Thank you Dr. Hua for this consult.
[2019-05-21] MEDS: CEFEPIME 1GM/NS 0.9% 50 ML 50 ML IV SCH (11:57)
[2019-05-21] MEDS ORDERED: POTASSIUM CHLORIDE 20MEQ/100ML 200 ML IV ONE (12:00)
[2019-05-21 15:43] VITALS: BP 134/56
--- NOTE | 2019-05-21 17:59 | NUR ---
Discontinuing PT services since patient is Mod I in functional mobility.Thank you. Addendum: 05/21/19 at 1801 by Olaf caldwell PT Amended: Links added.
--- NOTE | 2019-05-21 23:55 | NUR ---
05/21/2019 Discharge summary Final diagnosis: Sepsis History of fever and chills Choledocholithiasis by CT scan Diabetes mellitus type 2 Hypertension Hepatic segment lesion Hyperlipidemia Hospital course: 84-year-old male patient admitted under my service on 05/18/2019 and discharged on 05/21/2019. The patient was treated for the above conditions. The patient was place on IV antibiotics, IV fluids, glycemic control, pain control, consultants evaluation, and ERCP stent extraction. The patient was evaluated by multidisciplinary team, such as general surgery, pulmonary critical care, ID, and GI. US of the abdomen on 05/18/2019: Gallbladder sludge. No ultrasonographic evidence of acute cholecystitis. Mild intrahepatic or dilation. Chest x-ray on 05/18/2019: Left rosalba diaphragmatic elevation with bandlike atelectasis of the left lower lobe. Otherwise no acute cardiopulmonary abnormality. CT of the abdomen and pelvis with contrast on 05/18/2019: Mild biliary ductal dilation with questionable choledocholithiasis in the common bile duct. Correlation with serum bilirubin is suggested, and MRCP or gastroenterology consultation for ERCP may be of benefit for further evaluation. Otherwise no acute intra-abdominal or pelvic CT abnormalities. Large bowel diverticulosis without diverticulitis. Atherosclerotic vascular disease. Prostatomegaly. MRCP on 05/18/2019: Choledocholithiasis in the distal CBD. No evidence of acute cholecystitis. Mild intra-and extrahepatic dilation. Patient was discharged in stable conditions. Diet: Diabetic diet. Activities: As tolerated. Condition at the time of discharge: stable. Medications: Per reconciliation list Disposition: Follow-up with PCP.
== END 2019-05-21 20:30 | disposition home or self-care (01) | DRG 854 ==
LOC: ER 21:35 → ERHOLD 05-18 03:14 → IMCU 05-18 07:33 → MED/SURG 05-19 12:06
PROVIDERS: ADMIT Internal Medicine; ATTEND Internal Medicine
PROC: 0F798ZZ Dilation of Common Bile Duct, Via Natural or Artificial Opening Endoscopic (ICD-10-PCS; 2019-05-19)
PROC: 0FC98ZZ Extirpation of Matter from Common Bile Duct, Via Natural or Artificial Opening Endoscopic (ICD-10-PCS; 2019-05-19)
PROC: 0FT44ZZ Resection of Gallbladder, Percutaneous Endoscopic Approach (ICD-10-PCS; principal; 2019-05-20 08:00)
DX: A41.9 Sepsis, unspecified organism (principal); K80.46 Calculus of bile duct with acute and chronic cholecystitis without obstruction; N39.0 Urinary tract infection, site not specified; J98.11 Atelectasis; I16.1 Hypertensive emergency; K82.8 Other specified diseases of gallbladder; E78.5 Hyperlipidemia, unspecified; I10 Essential (primary) hypertension; E11.9 Type 2 diabetes mellitus without complications; Z87.891 Personal history of nicotine dependence; D18.03 Hemangioma of intra-abdominal structures; D64.9 Anemia, unspecified; R53.81 Other malaise; B96.20 Unspecified Escherichia coli [E. coli] as the cause of diseases classified elsewhere; Z79.84 Long term (current) use of oral hypoglycemic drugs
CPT/HCPCS: 36415; 43260; 71046; 74177; 74181; 74328; 76700; 80053; 80076; 81001; 82150; 82550; 82553; 82948; 83605; 83690; 84484; 85025; 85610; 87040; 87071; 87186; 87205; 87400; 88304; 93005; 99284; C1766; J0360; J0692; J1170; J2001; J2270; J2405; J2710; J3010; J3370; J3480; J7030; J7050; Q9967